=== PATIENT | female | born 1975 | race American Indian/Alaskan Native ===

== ENCOUNTER 2018-04-12 08:24 | Day surgery (SDC) | payer OTHER ==
[~2018-04-12] VITALS: Ht 172.7 cm; Wt 78.0 kg
[2018-04-12 09:27] LABS: HCG,QUAL RESULT NEGATIVE (NEGATIVE)
[2018-04-12] MEDS ORDERED: CEFAZOLIN 1 GM IVPB PREMIX 50 ML IV ONE (10:30)
[2018-04-12] MEDS ORDERED: SEVOFLURANE 15 MIN GAS INH ONE (11:15)
[2018-04-12] MEDS ORDERED: MIDAZOLAM HCL 5 MG/5 ML VIAL IVP ONE (11:15)
[2018-04-12] MEDS ORDERED: fentaNYL CITRATE 250 MCG/5 ML AMP IV ONE (11:15)
[2018-04-12] MEDS ORDERED: LR 1,000 ML IV.SOLN IV ONE (11:15)
[2018-04-12] MEDS ORDERED: KETOROLAC TROMETHAMINE 30 MG VIAL IVP ONE (11:15)
[2018-04-12] MEDS ORDERED: BUPIVACAINE /PF 0.25% 30 ML VIAL INJ ONE ×2 (11:15→12:04)
[2018-04-12] MEDS ORDERED: ROCURONIUM BROMIDE 10 MG/ML (ZEMURON) IV ONE (11:15)
[2018-04-12] MEDS ORDERED: PROPOFOL 200MG/ 20ML VIAL (DIPRIVAN) IV ONE (11:15)
[2018-04-12] MEDS ORDERED: DEXAMETHASONE SOD PHOSPHATE 4 MG/ML VIAL IVP ONE (11:15)
[2018-04-12] MEDS ORDERED: POLYMYXIN 500,000/BACIT.10,000 UNITS in NS IRR 1 L IR ONE (12:01)
[2018-04-12] MEDS ORDERED: LR 1,000 ML IV SCH (12:06)
[2018-04-12] MEDS ORDERED: HYDROmorphone 2 MG/ML VIAL IVP PRN ×2 (12:15)
[2018-04-12] MEDS ORDERED: MEPERIDINE HCL/PF 25 MG/ML DISP.SYRIN IVP PRN (12:15)
[2018-04-12] MEDS ORDERED: HYDROmorphone 1 MG INJ. 1 MG/ML AMPUL IVP PRN ×2 (12:15→15:00)
[2018-04-12 13:15] VITALS: BP_SYST 111
[2018-04-12] MEDS ORDERED: HYDROcodone/ACETAMIN 5-325 MG TAB (NORCO/ VICODIN) ONE (14:42)
[2018-04-12] MEDS ORDERED: HYDROcodone/ACETAMIN 5-325 MG TAB (NORCO/ VICODIN) PO PRN ×2 (15:00)
[2018-04-12] MEDS ORDERED: D5/0.45 NS 1,000 ML IV SCH (15:00)
== END 2018-04-12 15:15 | disposition home or self-care (01) ==
LOC: SDS 08:24 → SMU 08:28 → SDS 15:15
PROVIDERS: ATTEND Colon & Rectal Surgery
DX: K42.0 Umbilical hernia with obstruction, without gangrene (principal); E78.5 Hyperlipidemia, unspecified; E55.9 Vitamin D deficiency, unspecified; Z98.890 Other specified postprocedural states; Z79.899 Other long term (current) drug therapy
CPT/HCPCS: 49587; 84703; 88302; C1781; J0690; J1100; J1885; J2250; J2704; J3010; J3490; J7120